=== PATIENT | female | born 1960 | race Caucasian/White ===

== ENCOUNTER → 2017-02-10 | Outpatient (CLI) | payer OTHER ==
[~2017-02-10] MED LIST: AFRIN15 ML; FLONASE16 GM; IBUPROFEN PO; NO MEDICATIONS; OMNICEF PO
--- NOTE | ~2017-02-10 | MY29 ---
[facility] A Service of [facility] RADIOLOGY TEXT RESULTS PATIENT: NATHAN ANGEL LOCATION: [facility] : 56 UNIT #: [id number] AGE: [address]: Mo Muro DO SEX: F ORDER DR: [id number] [facility] [address] [place], [place] [address] [id number] O MR#: [id number] Acc #: [id number] NAME: NATHAN ANGEL : 1960 SEX: F STUDY DATE/TIME: 02/10/2017 13:32 UNIT: [facility] ROOM: STUDY DESCRIPTION: MY FARAZ SCREENING W/ CAD BILAT Attending Physician: Mo Muro D.O. Ordering Physician: Mo Muro D.O. Primary Care Physician: Mo Muro D.O. MEDICAL IMAGING REPORT This report is preliminary unless electronic signature is present EXAM Digital screening mammogram, 12/27/2016, [facility]. HISTORY 57-year-old woman; no risk elevation. Annual screening. COMPARISON Comparison mammograms date to 10/08/2006, with most recent 05/19/2013. FINDINGS Digital imaging of each breast was completed utilizing a two-view examination of each breast in craniocaudal and mediolateral-oblique projections. Review and interpretation of digital mammograms include a second review in conjunction with FDA-approved CAD device. There is a normal parenchymal presentation bilaterally consistent with the patient's age. There are no breast masses imaged and no parenchymal asymmetry is visualized. There are no suspicious microcalcifications and I see no focal architectural disturbance. IMPRESSION Negative screening digital mammogram. One-year followup recommended. Patients over the age of 40 are entered into a reminder system with target due date for the next mammogram. A result letter will also be sent to the patient. BIRADS: 1 Negative Dictated by... Saravanan Malave M.D. [facility] A Service [facility] RADIOLOGY TEXT RESULTS PATIENT: NATHAN ANGEL LOCATION: [facility] #: [id number] : 56 UNIT #: [id number] AGE: [address]: Mo Muro DO SEX: F ORDER DR: THIS IS AN ELECTRONICALLY VERIFIED REPORT Saravanan Malave M.D. at 02/11/2017 9:39 AM Kelli TD: 02/10/2017 16:57 JOB #: [id number] MEDICAL IMAGING REPORT Page 1 of 1 COPY
== END | disposition home or self-care (01) ==
LOC: CWCC 13:20
DX: Z12.31 Encounter for screening mammogram for malignant neoplasm of breast (principal)
CPT/HCPCS: G0202